=== PATIENT | female | born 1975 | race Caucasian/White ===

== ENCOUNTER → 2018-03-02 | Outpatient (CLI) | payer OTHER | END | disposition home or self-care (01) | LOC: C.RDSM 09:39 | PROVIDERS: ATTEND Physical Medicine & Rehabilitation Sports Medicine | DX: R52 Pain, unspecified (principal) ==

== ENCOUNTER → 2018-03-05 | Outpatient (CLI) | payer OTHER ==
--- NOTE | 2018-03-05 08:39 | DIAGNOSTIC IMAGING REPORT ---
RIGHT SHOULDER MRI HISTORY: PAIN IN RIGHT SHOULDER TECHNIQUE: Multiplanar multisequence MRI of the right shoulder was performed without contrast. COMPARISON STUDY: Right shoulder 03/02/2018. FINDINGS: AC joint: Intact Rotator cuff: The subscapularis, infraspinatus, and teres minor tendons are intact. Focal full-thickness tear involving the distal supraspinatus tendon. This measures 11 x 7 mm. This results in trace fluid within the subacromial/subdeltoid bursa. Mild fatty atrophy of the supraspinatus muscle. Labrum: Abnormal configuration and signal within the posterior/superior labrum suggestive of a SLAP tear. Biceps tendon: Intact Bones: No fracture or dislocation. Normal marrow signal intensity seen throughout the visualized osseous structures. Cartilage: Intact Miscellaneous: Small amount of contrast extends down the proximal humeral shaft. However, the inferior glenohumeral ligament appears to be intact on this study. IMPRESSION: 1. Focal full-thickness tear at the distal supraspinatus tendon. 2. Probable SLAP tear of the labrum. 3. No fracture or dislocation. Electronically signed by: Reid Joyner M.D. 03/05/2018 8:38 AM Dictated Date/Time: 03/05/2018 8:31 AM
== END | disposition home or self-care (01) ==
LOC: C.MRI 07:51
PROVIDERS: ATTEND Physical Medicine & Rehabilitation Sports Medicine
DX: M25.511 Pain in right shoulder (principal)